=== PATIENT | male | born 1950 | race Caucasian/White ===

== ENCOUNTER → 2016-07-17 23:50 | Emergency (ER) | payer BC ==
[~2016-07-17 23:50] MED LIST: CELEXA20 PO; NEXIUM40 PO; PRINZIDE1 TAB PO; ZOCOR20 PO
== END | disposition left against medical advice (07) ==
LOC: ER 23:50
DX: R10.9 Unspecified abdominal pain (principal); Z53.21 Procedure and treatment not carried out due to patient leaving prior to being seen by health care provider
CPT/HCPCS: 93005